=== PATIENT | male | born 1940 | race Caucasian/White ===

== ENCOUNTER 2020-06-13 10:17 | Inpatient (IN) ==
[2020-06-13] MEDS ORDERED: SODIUM CHLORIDE 0.9% 500 ML IV STA (10:44)
[2020-06-13] MEDS ORDERED: ONDANSETRON 4 MG/2 ML VIAL IV STA (10:44)
[2020-06-13] MEDS ORDERED: HYDROmorphone 2 MG/1 ML VIAL IV STA (10:44)
[2020-06-13] MEDS ORDERED: DILTIAZEM 50 MG/10 ML VIAL IV STA (11:08)
[2020-06-13 11:19] LABS: Basophils % 0.1 % (0.0-0.8); Hematocrit 32.5 VOL% (42.0-52.0); Hemoglobin 11.2 GM/DL (14.0-18.0); Immature Granulocytes % 1.3 %; Immature Granulocytes Absolute 0.09 #; Lymphocytes # 0.1 10*3/uL (1.4-4.0); Lymphocytes % 1.1 % (21.2-54.2); Mean Corpuscular HGB Conc 34.5 GM/DL (32-36); Mean Corpuscular Volume 92.6 FL (87-102); Mean Platelet Volume 9.5 FL (9.6-12.0); Monocytes % 10.4 % (1.7-12.7); Neutrophils % 87.1 % (38.7-73.9); Platelet Count 174 T/CUMM (130-400); Red Blood Count 3.51 MC/CUMM (3.8-5.5); Red Cell Distribution Width 13.2 % (9.3-17.3); White Blood Count 7.2 T/CUMM (4-12)
[2020-06-13 11:30] LABS: INR 1.1; PT Patient Result 11.8 SECS (9.8-11.9); Partial Thromboplastin Time 29.6 SECS (23.9-33.8)
[2020-06-13] MEDS ORDERED: ZALEPLON 5 MG CAPSULE PO PRN (11:34)
[2020-06-13] MEDS ORDERED: SIMETHICONE CHEW 125 MG TABLET PO PRN (11:34)
[2020-06-13] MEDS ORDERED: diphenhydrAMINE CAP 25 MG CAPSULE PO PRN (11:34)
[2020-06-13] MEDS ORDERED: BISACODYL 5 MG TABLET PO PRN (11:34)
[2020-06-13] MEDS ORDERED: LACTULOSE 20 GM/30 ML UDCUP PO PRN (11:34)
[2020-06-13] MEDS ORDERED: hydrALAZINE 20 MG/1 ML VIAL IV PRN (11:34)
[2020-06-13] MEDS ORDERED: CALCIUM CARBONATE CHEW 500 MG TABLET PO PRN (11:34)
[2020-06-13] MEDS ORDERED: guaiFENesin/DM ER 600-30 MG TABLET PO PRN (11:34)
[2020-06-13] MEDS ORDERED: NICOTINE 21 MG/24 HR PATCH TRANSDERM PRN (11:34)
[2020-06-13] MEDS ORDERED: ALUMINUM/MAGNES/SIMETH MAX STR 30 ML UDCUP PO PRN (11:34)
[2020-06-13] MEDS ORDERED: DEXTROSE 50% 25 GM/50 ML VIAL IV PRN (11:34)
[2020-06-13] MEDS ORDERED: ONDANSETRON 4 MG/2 ML VIAL IV PRN (11:34)
[2020-06-13] MEDS ORDERED: DOCUSATE SODIUM 100 MG CAPSULE PO PRN (11:34)
[2020-06-13] MEDS ORDERED: PROMETHAZINE 25 MG/1 ML VIAL IM PRN (11:34)
[2020-06-13] MEDS ORDERED: GLUCAGON 1 MG VIAL IM PRN (11:34)
[2020-06-13 11:38] LABS: Albumin 2.5 G/DL (3.4-5.0); Bilirubin,Total 0.8 MG/DL (0.2-1.0); Calcium 9.1 MG/DL (8.5-10.1); Lymphocytes 2 % (20-55); Osmolality,Calculated 276.1 MOS/KG (273-304); Segmented Neutrophils 91 % (50-85); Total Cells Counted 100; Total Protein 6.6 G/DL (6.4-8.3)
[2020-06-13 11:39] LABS: Microcytosis 1+; Platelet Estimate Adequate
[2020-06-13] MEDS: dilTIAZem Drip 125 MG/125 ML PREMIX IV SCH ×2 (11:48→21:02)
[2020-06-13] MEDS: METOPROLOL TARTRATE 25 MG TABLET PO SCH ×2 (15:30→20:59)
[2020-06-13] MEDS: POTASSIUM CHLORIDE INJ 20 MEQ in LACTATED RINGERS 1,000 ML IV SCH (17:03)
[2020-06-13 18:09] LABS: Apearance,Urine CLEAR (Clear); Bilirubin,Urine Negative (Negative); Blood, Urine Negative (Negative); Glucose,Urine (UA) Negative (Negative); Hyaline Casts,Urine 1 /LPF (0-3); Ketones,Urine Negative (Negative); Mucus,Urine Occasional /LPF (Occasional); Nitrite,Urine Negative (Negative); Protein,Urine Negative; RBC,Urine 3 /HPF (0-4); Urine Color Amber (Yellow); Urine Specific Gravity 1.023 (1.001-1.035); WBC,Urine 1 /HPF (0-6)
[2020-06-14] MEDS: POTASSIUM CHLORIDE INJ 20 MEQ in LACTATED RINGERS 1,000 ML IV SCH ×2 (02:53→15:37)
[2020-06-14 06:24] LABS: Basophils % 0.1 % (0.0-0.8); Hematocrit 34.6 VOL% (42.0-52.0); Hemoglobin 11.6 GM/DL (14.0-18.0); Immature Granulocytes % 1.1 %; Immature Granulocytes Absolute 0.08 #; Lymphocytes # 0.1 10*3/uL (1.4-4.0); Lymphocytes % 1.4 % (21.2-54.2); Mean Corpuscular HGB Conc 33.5 GM/DL (32-36); Mean Corpuscular Volume 94.3 FL (87-102); Mean Platelet Volume 9.9 FL (9.6-12.0); Monocytes % 6.4 % (1.7-12.7); Platelet Count 171 T/CUMM (130-400); Red Blood Count 3.67 MC/CUMM (3.8-5.5); Red Cell Distribution Width 13.5 % (9.3-17.3); White Blood Count 7.3 T/CUMM (4-12)
[2020-06-14 06:46] LABS: Albumin 2.4 G/DL (3.4-5.0); Bilirubin,Total 1.6 MG/DL (0.2-1.0); Calcium 8.8 MG/DL (8.5-10.1); Osmolality,Calculated 273.1 MOS/KG (273-304); Risk Ratio 5.75; Thyroid Stimulating Hormone 0.918 uIU/ml (0.358-3.74); Total Protein 6.3 G/DL (6.4-8.3)
[2020-06-14 07:02] LABS: Band Neutrophils 2 % (0-10); Lymphocytes 1 % (20-55); Microcytosis Slight; Segmented Neutrophils 93 % (50-85); Total Cells Counted 100
[2020-06-14 07:03] LABS: Platelet Estimate Adequate
[2020-06-14] MEDS: METOPROLOL TARTRATE 25 MG TABLET PO SCH ×2 (09:24→21:06)
[2020-06-14] MEDS ORDERED: ceFAZolin 1,000 MG VIAL ONE (10:28)
[2020-06-14] MEDS ORDERED: BACITRACIN OINT 0.9 GM PACK TOP ONE (11:15)
[2020-06-14] MEDS ORDERED: MAGNESIUM HYDROXIDE SUSP 30 ML UDCUP PO PRN (11:25)
[2020-06-14] MEDS ORDERED: dilTIAZem Drip 125 MG/125 ML PREMIX IV ONE (11:37)
[2020-06-14] MEDS ORDERED: BUPIVACAINE MPF 0.5% /EPI 30 ML VIAL ONE (11:44)
[2020-06-14] MEDS ORDERED: propofoL 200 MG/20 ML VIAL IV ONE (11:45)
[2020-06-14] MEDS ORDERED: CALCIUM CHLORIDE 1,000 MG/10 ML VIAL IV ONE (11:45)
[2020-06-14] MEDS ORDERED: LIDOCAINE 1% 5 ML VIAL ONE (11:46)
[2020-06-14] MEDS ORDERED: PHENYLEPHRINE DRIP 20 MG/250 ML PREMIX IV ONE (11:46)
[2020-06-14] MEDS ORDERED: DEXAMETHASONE 4 MG/1 ML VIAL ONE (11:46)
[2020-06-14] MEDS ORDERED: SEVOFLURANE 1 UNIT/15 MINUTE INH ONE (11:46)
[2020-06-14] MEDS ORDERED: DEXMEDETOMIDINE 200 MCG/2 ML VIAL ONE (11:46)
[2020-06-14] MEDS ORDERED: fentaNYL 100 MCG/2 ML VIAL ONE (11:46)
[2020-06-14] MEDS ORDERED: ETOMIDATE 40 MG/20 ML VIAL IV ONE (11:46)
[2020-06-14] MEDS ORDERED: ALBUMIN 5% 12.5 GM/250 ML VIAL IV ONE (11:46)
[2020-06-14] MEDS ORDERED: ALBUTEROL/IPRATROPIUM 3 ML NEB RESP TX ONE ×2 (12:16→12:20)
[2020-06-14] MEDS: dilTIAZem Drip 125 MG/125 ML PREMIX IV SCH (12:52)
[2020-06-14] MEDS ORDERED: ceFAZolin 1,000 MG in SYRINGE 1 EACH IV ONE (16:13)
[2020-06-14] MEDS: ceFAZolin 1,000 MG in SYRINGE 1 EACH IV SCH ×2 (16:14→22:50)
[2020-06-14] MEDS: traZODone 50 MG TABLET PO PRN (21:06)
[2020-06-14] MEDS: APIXABAN 2.5 MG TABLET PO SCH (21:07)
[2020-06-15] MEDS: POTASSIUM CHLORIDE INJ 20 MEQ in LACTATED RINGERS 1,000 ML IV SCH (01:06)
[2020-06-15] MEDS: MORPHINE 4 MG/1 ML VIAL IV PRN (02:47)
[2020-06-15] MEDS: dilTIAZem Drip 125 MG/125 ML PREMIX IV SCH (04:04)
[2020-06-15 06:08] LABS: Basophils % 0.1 % (0.0-0.8); Hematocrit 34.9 VOL% (42.0-52.0); Hemoglobin 11.5 GM/DL (14.0-18.0); Immature Granulocytes % 0.7 %; Immature Granulocytes Absolute 0.05 #; Lymphocytes # 0.1 10*3/uL (1.4-4.0); Lymphocytes % 0.8 % (21.2-54.2); Mean Corpuscular Volume 94.8 FL (87-102); Mean Platelet Volume 10.1 FL (9.6-12.0); Monocytes % 3.2 % (1.7-12.7); Neutrophils % 95.2 % (38.7-73.9); Platelet Count 155 T/CUMM (130-400); Red Blood Count 3.68 MC/CUMM (3.8-5.5); Red Cell Distribution Width 13.5 % (9.3-17.3); White Blood Count 7.4 T/CUMM (4-12)
[2020-06-15 06:29] LABS: Calcium 8.8 MG/DL (8.5-10.1)
[2020-06-15 06:31] LABS: Albumin 2.5 G/DL (3.4-5.0); Bilirubin,Total 1.3 MG/DL (0.2-1.0); Calcium 9.1 MG/DL (8.5-10.1); Osmolality,Calculated 274.1 MOS/KG (273-304); Total Protein 6.4 G/DL (6.4-8.3)
[2020-06-15] MEDS ORDERED: METOPROLOL TARTRATE 25 MG TABLET PO SCH (08:44)
[2020-06-15] MEDS ORDERED: FUROSEMIDE 40 MG/4 ML VIAL IV SCH (09:00)
[2020-06-15] MEDS: APIXABAN 2.5 MG TABLET PO SCH ×2 (09:18→20:32)
[2020-06-15] MEDS: METOPROLOL TARTRATE 50 MG TABLET PO SCH ×2 (09:18→20:32)
[2020-06-15 09:35] LABS: Anisocytosis 1+; Band Neutrophils 12 % (0-10); Lymphocytes 4 % (20-55); Metamyelocytes 2 %; Nucleated Red Blood Cells 1 (0-5); Platelet Estimate Normal; Segmented Neutrophils 79 % (50-85); Total Cells Counted 100
[2020-06-16] MEDS: dilTIAZem Drip 125 MG/125 ML PREMIX IV SCH ×2 (04:44→12:21)
[2020-06-16 06:18] LABS: Basophils % 0.3 % (0.0-0.8); Hemoglobin 10.6 GM/DL (14.0-18.0); Immature Granulocytes % 1.1 %; Immature Granulocytes Absolute 0.07 #; Lymphocytes # 0.1 10*3/uL (1.4-4.0); Lymphocytes % 1.9 % (21.2-54.2); Mean Corpuscular HGB Conc 33.1 GM/DL (32-36); Mean Corpuscular Volume 93.8 FL (87-102); Mean Platelet Volume 9.9 FL (9.6-12.0); Monocytes % 4.1 % (1.7-12.7); Neutrophils % 92.6 % (38.7-73.9); Platelet Count 146 T/CUMM (130-400); Red Blood Count 3.41 MC/CUMM (3.8-5.5); Red Cell Distribution Width 13.7 % (9.3-17.3); White Blood Count 6.3 T/CUMM (4-12)
[2020-06-16 06:33] LABS: Albumin 2.4 G/DL (3.4-5.0); Bilirubin,Total 1.5 MG/DL (0.2-1.0); Calcium 8.8 MG/DL (8.5-10.1); Osmolality,Calculated 274.1 MOS/KG (273-304)
[2020-06-16 07:02] LABS: Anisocytosis 2+; Band Neutrophils 16 % (0-10); Lymphocytes 1 % (20-55); Metamyelocytes 1 %; Platelet Estimate Adequate; Segmented Neutrophils 78 % (50-85); Total Cells Counted 100
[2020-06-16 07:03] LABS: Macrocytosis Slight
[2020-06-16 07:43] LABS: % Iron Saturation 89.6 % (18-50); Ferritin 2807.8 ng/ml (26-388)
[2020-06-16] MEDS ORDERED: DILTIAZEM CD 120 MG CAPSULE PO SCH (09:00)
[2020-06-16] MEDS: ALBUTEROL/IPRATROPIUM 3 ML NEB RESP TX SCH ×3 (09:36→19:27)
[2020-06-16] MEDS: METOPROLOL TARTRATE 50 MG TABLET PO SCH ×2 (09:37→21:19)
[2020-06-16] MEDS: DILTIAZEM 30 MG TABLET PO SCH ×3 (09:37→21:19)
[2020-06-16] MEDS: FUROSEMIDE 40 MG/4 ML VIAL IV SCH ×2 (09:37→21:19)
[2020-06-16] MEDS: APIXABAN 2.5 MG TABLET PO SCH ×2 (09:37→21:19)
[2020-06-16] MEDS: methylPREDNISolone SOD SUC 40 MG/1 ML VIAL IV SCH ×2 (09:44→16:37)
[2020-06-16] MEDS: LEVOFLOXACIN INJ 750 MG in PREMIX 1 EACH IV SCH (09:44)
[2020-06-16] MEDS: cefTRIAXone 1,000 MG in SYRINGE 1 EACH IV SCH (13:03)
[2020-06-17] MEDS: methylPREDNISolone SOD SUC 40 MG/1 ML VIAL IV SCH ×3 (01:32→16:40)
[2020-06-17] MEDS: ALBUTEROL/IPRATROPIUM 3 ML NEB RESP TX SCH ×4 (01:50→19:58)
[2020-06-17 05:31] LABS: Basophils % 0.5 % (0.0-0.8); Hematocrit 30.8 VOL% (42.0-52.0); Hemoglobin 10.3 GM/DL (14.0-18.0); Immature Granulocytes % 2.8 %; Immature Granulocytes Absolute 0.11 #; Lymphocytes # 0.1 10*3/uL (1.4-4.0); Mean Corpuscular HGB Conc 33.4 GM/DL (32-36); Mean Corpuscular Volume 94.2 FL (87-102); Monocytes % 3.6 % (1.7-12.7); Neutrophils % 91.1 % (38.7-73.9); Platelet Count 139 T/CUMM (130-400); Red Blood Count 3.27 MC/CUMM (3.8-5.5); Red Cell Distribution Width 13.3 % (9.3-17.3); White Blood Count 3.9 T/CUMM (4-12)
[2020-06-17 05:51] LABS: Albumin 2.2 G/DL (3.4-5.0); Bilirubin,Total 0.9 MG/DL (0.2-1.0); Calcium 8.6 MG/DL (8.5-10.1); Total Protein 5.8 G/DL (6.4-8.3)
[2020-06-17 05:58] LABS: Lymphocytes 2 % (20-55); Segmented Neutrophils 93 % (50-85); Total Cells Counted 100
[2020-06-17 05:59] LABS: Hypochromasia 1+; Microcytosis Slight; Platelet Estimate Adequate
[2020-06-17] MEDS: FUROSEMIDE 40 MG/4 ML VIAL IV SCH (08:43)
[2020-06-17] MEDS: METOPROLOL TARTRATE 50 MG TABLET PO SCH ×2 (08:44→20:49)
[2020-06-17] MEDS: DILTIAZEM 30 MG TABLET PO SCH ×3 (08:44→20:48)
[2020-06-17] MEDS: APIXABAN 2.5 MG TABLET PO SCH ×2 (08:44→20:49)
[2020-06-17] MEDS: LEVOFLOXACIN INJ 750 MG in PREMIX 1 EACH IV SCH (08:44)
[2020-06-17] MEDS: cefTRIAXone 1,000 MG in SYRINGE 1 EACH IV SCH (10:14)
[2020-06-17] MEDS ORDERED: SODIUM CHLORIDE 0.9% 1,000 ML IV SCH (10:30)
[2020-06-17] MEDS: dilTIAZem Drip 125 MG/125 ML PREMIX IV SCH (10:46)
[2020-06-18] MEDS: methylPREDNISolone SOD SUC 40 MG/1 ML VIAL IV SCH ×3 (00:23→17:21)
[2020-06-18] MEDS: ALBUTEROL/IPRATROPIUM 3 ML NEB RESP TX SCH ×4 (01:21→19:24)
[2020-06-18 05:11] LABS: Basophils % 0.3 % (0.0-0.8); Hematocrit 30.8 VOL% (42.0-52.0); Hemoglobin 10.5 GM/DL (14.0-18.0); Immature Granulocytes % 1.6 %; Immature Granulocytes Absolute 0.06 #; Lymphocytes # 0.1 10*3/uL (1.4-4.0); Lymphocytes % 2.7 % (21.2-54.2); Mean Corpuscular HGB Conc 34.1 GM/DL (32-36); Mean Corpuscular Volume 93.3 FL (87-102); Mean Platelet Volume 9.9 FL (9.6-12.0); Monocytes % 3.8 % (1.7-12.7); Neutrophils % 91.6 % (38.7-73.9); Platelet Count 125 T/CUMM (130-400); Red Cell Distribution Width 13.3 % (9.3-17.3); White Blood Count 3.7 T/CUMM (4-12)
[2020-06-18 05:40] LABS: Lymphocytes 1 % (20-55); Segmented Neutrophils 97 % (50-85); Total Cells Counted 100
[2020-06-18 05:41] LABS: Hypochromasia 1+; Microcytosis Slight; Platelet Estimate Normal
[2020-06-18 05:42] LABS: Albumin 2.4 G/DL (3.4-5.0); Osmolality,Calculated 283.7 MOS/KG (273-304); Total Protein 5.9 G/DL (6.4-8.3)
[2020-06-18] MEDS: APIXABAN 2.5 MG TABLET PO SCH (08:02)
[2020-06-18] MEDS: METOPROLOL TARTRATE 50 MG TABLET PO SCH ×2 (08:03→22:50)
[2020-06-18] MEDS: DILTIAZEM 30 MG TABLET PO SCH (08:03)
[2020-06-18] MEDS: LEVOFLOXACIN INJ 750 MG in PREMIX 1 EACH IV SCH ×2 (08:04→08:39)
[2020-06-18] MEDS: MORPHINE 4 MG/1 ML VIAL IV PRN ×2 (08:55→15:03)
[2020-06-18] MEDS ORDERED: FUROSEMIDE 40 MG TABLET PO SCH (09:00)
[2020-06-18] MEDS: dilTIAZem Drip 125 MG/125 ML PREMIX IV SCH (11:41)
[2020-06-18] MEDS ORDERED: DILTIAZEM CD 120 MG CAPSULE PO SCH (12:30)
[2020-06-18] MEDS ORDERED: TUBERCULIN SKIN TEST 0.1 ML SYRINGE INTRADERM ONE (12:39)
[2020-06-18] MEDS: cefTRIAXone 1,000 MG in SYRINGE 1 EACH IV SCH (15:03)
[2020-06-18] MEDS: traZODone 50 MG TABLET PO PRN (22:50)
[2020-06-18] MEDS: LACTULOSE 20 GM/30 ML UDCUP PO SCH (22:50)
[2020-06-18] MEDS: APIXABAN 5 MG TABLET PO SCH (22:50)
[2020-06-19] MEDS: ALBUTEROL/IPRATROPIUM 3 ML NEB RESP TX SCH ×4 (00:25→19:56)
[2020-06-19] MEDS: methylPREDNISolone SOD SUC 40 MG/1 ML VIAL IV SCH ×3 (01:57→17:17)
[2020-06-19 04:54] LABS: Hematocrit 28.7 VOL% (42.0-52.0); Hemoglobin 9.5 GM/DL (14.0-18.0); Immature Granulocytes % 5.2 %; Immature Granulocytes Absolute 0.16 #; Lymphocytes # 0.1 10*3/uL (1.4-4.0); Mean Corpuscular HGB Conc 33.1 GM/DL (32-36); Mean Corpuscular Volume 95.3 FL (87-102); Mean Platelet Volume 9.8 FL (9.6-12.0); Monocytes % 7.5 % (1.7-12.7); NRBC # 0.02 10*3/uL; Neutrophils % 85.3 % (38.7-73.9); Platelet Count 108 T/CUMM (130-400); Red Blood Count 3.01 MC/CUMM (3.8-5.5); Red Cell Distribution Width 13.3 % (9.3-17.3); White Blood Count 3.1 T/CUMM (4-12)
[2020-06-19 05:22] LABS: Lymphocytes 3 % (20-55); Myelocytes 1 %; Segmented Neutrophils 91 % (50-85)
[2020-06-19 05:27] LABS: Hypochromasia 2+; Platelet Estimate Decreased
[2020-06-19 05:28] LABS: Total Cells Counted 100
[2020-06-19 05:43] LABS: Albumin 2.4 G/DL (3.4-5.0); Bilirubin,Total 0.8 MG/DL (0.2-1.0); Calcium 8.8 MG/DL (8.5-10.1); Osmolality,Calculated 294.1 MOS/KG (273-304); Total Protein 5.6 G/DL (6.4-8.3)
[2020-06-19] MEDS: LACTULOSE 20 GM/30 ML UDCUP PO SCH ×2 (08:50→21:36)
[2020-06-19] MEDS: LEVOFLOXACIN INJ 750 MG in PREMIX 1 EACH IV SCH (08:51)
[2020-06-19] MEDS: METOPROLOL TARTRATE 50 MG TABLET PO SCH ×2 (08:51→21:36)
[2020-06-19] MEDS: APIXABAN 5 MG TABLET PO SCH ×2 (08:51→21:36)
[2020-06-19] MEDS: DILTIAZEM CD 120 MG CAPSULE PO SCH ×2 (08:51→21:36)
[2020-06-19] MEDS ORDERED: POTASSIUM CHLORIDE 20 MEQ TABLET PO ONE (09:39)
[2020-06-19] MEDS: cefTRIAXone 1,000 MG in SYRINGE 1 EACH IV SCH (11:54)
[2020-06-20] MEDS: methylPREDNISolone SOD SUC 40 MG/1 ML VIAL IV SCH ×3 (00:34→17:15)
[2020-06-20] MEDS: ALBUTEROL/IPRATROPIUM 3 ML NEB RESP TX SCH ×3 (00:59→13:20)
[2020-06-20] MEDS: LACTULOSE 20 GM/30 ML UDCUP PO SCH (10:37)
[2020-06-20] MEDS: DILTIAZEM CD 120 MG CAPSULE PO SCH (10:37)
[2020-06-20] MEDS: APIXABAN 5 MG TABLET PO SCH (10:38)
[2020-06-20] MEDS: METOPROLOL TARTRATE 50 MG TABLET PO SCH (10:38)
[2020-06-20] MEDS: LEVOFLOXACIN INJ 750 MG in PREMIX 1 EACH IV SCH (12:46)
[2020-06-20] MEDS: cefTRIAXone 1,000 MG in SYRINGE 1 EACH IV SCH (12:47)
[2020-06-20 16:47] VITALS: BP 103/66
== END 2020-06-20 19:08 | DRG 480 ==
LOC: N.ED 10:17 → N.EDINP 12:58 → SUATTDRO 12:58 → N.TELEN 15:37
PROVIDERS: ADMIT Internal Medicine; ATTEND Internal Medicine